=== PATIENT | female | born 1940 | race Caucasian/White ===

== ENCOUNTER 2017-10-11 20:19 | Emergency (ER) | payer MEDICARE, OTHER ==
[2017-10-11] MEDS ORDERED: LIDOCAINE HCL 2% GEL TOP ONE (20:29)
[2017-10-11] MEDS ORDERED: TDAP VACCINE 0.5 ML SUS IM ONE ×2 (20:45→21:10)
[2017-10-11] MEDS ORDERED: ACETAMINOPHEN 325 MG PO ONE (20:46)
[2017-10-11] MEDS ORDERED: SODIUM CHLORIDE 0.9% 1000ML 1,000 ML IV ONE (21:04)
[2017-10-11 21:10] LABS: BASOPHILS % (AUTO) 1 % (0-3); EOSINOPHILS % (AUTO) 2 % (0-9); HEMATOCRIT 35 % (35-47); HEMOGLOBIN 12.2 gm/dl (12.0-15.5); LYMPHOCYTES % (AUTO) 24.5 % (10-50); MEAN CORPUSCULAR HEMOGLOBIN 33.7 pg (27.0-32.0); MEAN CORPUSCULAR HGB CONC 35.2 gm/dl (32.0-36.0); MEAN CORPUSCULAR VOLUME 96 fL (81-99); MONOCYTES % (AUTO) 16.4 % (0-12); NEUTROPHILS % (AUTO) 55.5 % (37-80)
[2017-10-11] MEDS ORDERED: ACETAMINOPHEN 325 MG ONE (21:10)
[2017-10-11 21:22] LABS: ALBUMIN 3.4 gm/dl (3.4-5.0); ALKALINE PHOSPHATASE 51 IU/L (46-116); ALT 37 IU/L (14-63); AST 31 IU/L (15-37); BILIRUBIN,TOTAL 0.3 mg/dl (0.2-1.0); BLOOD UREA NITROGEN 14 mg/dl (7-18); CALCIUM 9.1 mg/dl (8.5-10.1); CARBON DIOXIDE 29.1 mEq/L (21-32); CHLORIDE 96 mMol/L (98-107); GLOM FILT RATE 48 mL/min (>60); GLUCOSE 102 mg/dl (74-106); POTASSIUM 4.2 mMol/L (3.5-5.1); SODIUM 134 mMol/L (136-145); TOTAL PROTEIN 7.3 gm/dl (6.4-8.2); TROP I < 0.017 ng/ml (0.000-0.056)
[2017-10-11] MEDS ORDERED: BACITRACIN 500 U/GM OIN TOP ONE ×2 (22:10→22:28)
[2017-10-11 22:31] LABS: APPEARANCE,URINE Clear; BILIRUBIN,URINE NEGATIVE (NEGATIVE); COLOR,URINE Yellow; GLUCOSE, URINE (UA) NEGATIVE (NEGATIVE); KETONES,URINE NEGATIVE (NEGATIVE); LEUKOCYTE ESTERASE ,URINE 1+ (NEGATIVE); NITRATE,URINE NEGATIVE (NEGATIVE); OCCULT BLOOD,URINE NEGATIVE (NEG-TRACE); PH,URINE 5.5; UROBILINOGEN,URINE 0.2 (0.2-1.0 EU)
[2017-10-11 22:39] LABS: RBC,URINE 0-2 (0-3AV/HPF)
[2017-10-11 22:40] LABS: BACTERIA 1+ (< 1+); CRYSTALS NEGATIVE (0-3 AVE/HPF); WBC,URINE 0-2 (0-5AV/HPF)
[2017-10-11 22:59] VITALS: BP 127/80; PULSE 91; RESP 20; O2SAT 94
[2017-10-12 00:55] VITALS: TEMP 97.2
== END 2017-10-11 23:00 | disposition home or self-care (01) | DRG 605 ==
LOC: ED 20:19
DX: S01.91XA Laceration without foreign body of unspecified part of head, initial encounter (principal); R40.2362 Coma scale, best motor response, obeys commands, at arrival to emergency department; R40.2142 Coma scale, eyes open, spontaneous, at arrival to emergency department; R40.2252 Coma scale, best verbal response, oriented, at arrival to emergency department; R55 Syncope and collapse; Z72.89 Other problems related to lifestyle; Y90.7 Blood alcohol level of 200-239 mg/100 ml
CPT/HCPCS: 70450; 72125; 80053; 80307; 81001; 83880; 84484; 85025; 90471; 90715; 93005; 96365; 99284; 99285; A6402; A9270-GY